=== PATIENT | male | born 1935 | race Caucasian/White ===

== ENCOUNTER 2018-06-23 10:16 | Emergency (ER) | payer MEDICARE ==
[~2018-06-23 10:16] MED LIST: ACET-2031 PO; ASP325 PO; ASPI-757 PO; ATOR20TA65 PO; DOCU-416 PO; EYE CAPS; IBUP600T22 PO; LEVO50TA86 PO; LOSA-51 PO; LOSA-54 PO; MIR; NAPR-731 PO; OXYC-865 PO; POTA99TA15 PO; SIMV-42 PO; TRAM-420 PO; VALS1TAB96 PO
--- NOTE | 2018-06-23 10:18 | ER Report ---
History and Physical Time Seen By MD: 10:18 HPI/ROS CHIEF COMPLAINT: Midsternal chest pain/mid epigastric abdominal pain HISTORY OF PRESENT ILLNESS: Patient is a 83-year-old male here with complaints of midsternal chest pain without radiation, shortness of breath which started approximately 10:00 this morning. 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 Patient reports that his last cardiac catheterization and stress test for approximately 20 years prior. Denies prior history of similar symptoms. Patient also has nausea and vomiting associated with this pain. Patient reports a history of hypertension, hyperlipidemia denies smoking or diabetes. He does have a family history significant for cardiac disease. Patient is afebrile, hemodynamically stable at time of evaluation. Patient did not take aspirin or nitroglycerin prior to arrival. REVIEW OF SYSTEMS: Constitutional: No fever, no chills. Eyes: No discharge. ENT: No sore throat. Cardiovascular: + chest pain, no palpitations. Respiratory: No cough, + shortness of breath. Gastrointestinal: + Midepigastric abdominal pain, + nausea and vomiting. Genitourinary: No hematuria. Musculoskeletal: No back pain. Skin: No rashes. Neurological: No headache. Allergies: Coded Allergies: Khiioss-Urs-Div Reductase Inhibitor (Verified Adverse Reaction, melissa Botello, 06/23/18) Home Meds Active Scripts Ondansetron (ZOFRAN ODT) 4 Mg Tab.rapdis, 4 MG PO Q6H PRN for NAUSEA/VOMITING, #20 TAB.DELFINO 0 Refills Prov:CAROLYN ROJAS DO 06/23/18 Oxycodone Hcl/Acetaminophen (PERCOCET 5-325 MG TABLET) 1 Each Tablet, 1 EACH PO Q4H PRN for PAIN, #15 TAB 0 Refills Prov:CAROLYN ROJAS DO 06/23/18 Naproxen (NAPROXEN) 375 Mg Tablet.dr, 375 MG PO twice a day for 10 Days, #20 TAB Prov:NELSON CAPUTO MD 06/03/17 Reported Medications Losartan/Hydrochlorothiazide (LOSARTAN-HCTZ 100-25 MG TAB) 1 Each Tablet, PO QDAY 03/02/15 Atorvastatin Calcium (ATORVASTATIN CALCIUM) 20 Mg Tablet, 1 TAB PO QDAY, TAB 03/02/15 Acetaminophen (ACETAMINOPHEN) 325 Mg Tablet, 325 MG PO Q4-6H PRN for PAIN, TAB 03/02/15 Aspirin (ASPIRIN) 325 Mg Tablet, 325 MG PO QDAY, TAB 02/24/15 Potassium (POTASSIUM) 99 Mg Tablet, 99 MG PO QDAY 06/06/14 [Eye Caps] No Conflict Check 06/06/14 Tramadol Hcl (TRAMADOL HCL) 50 Mg Tablet, 50-100 MG PO Q4-6H 06/06/14 Levothyroxine Sodium (LEVOTHYROXINE SODIUM) 50 Mcg Tablet, 50 MCG PO QDAY 06/06/14 Hx Smoking: Yes Smoking Status: Former Smoker Exposure to Second Hand Smoke?: No Hx Substance Use Disorder: No Hx Alcohol Use: Yes Constitutional Vital Sign - Last 24 Hours 06/23/18 06/23/18 06/23/18 06/23/18 10:16 10:20 10:27 10:30 Temp 97.8 Pulse ??? Resp 16 B/P (MAP) 128/77 (94) 128/77 125/83 (97) Pulse Ox 96 O2 Delivery Room Air 06/23/18 06/23/18 06/23/18 06/23/18 10:31 10:40 10:43 10:46 Pulse 62 66 Resp 16 B/P (MAP) 97/57 (70) 89/61 (70) Pulse Ox 96 88 06/23/18 06/23/18 06/23/18 06/23/18 10:50 10:54 10:55 11:00 Pulse 59 Resp 17 B/P (MAP) 105/58 (74) 106/60 (75) Pulse Ox 92 93 O2 Delivery Nasal Cannula O2 Flow Rate 2 2.0 06/23/18 06/23/18 06/23/18 06/23/18 11:10 11:25 11:30 11:40 Pulse 56 ??? 51 Resp 11 12 B/P (MAP) 115/74 (88) ???/??? (1665) 108/56 (73) Pulse Ox 99 93 06/23/18 06/23/18 06/23/18 06/23/18 11:50 11:55 12:25 12:28 Pulse 55 54 Resp 26 25 B/P (MAP) 118/98 (105) 99/84 (89) Pulse Ox 93 93 06/23/18 06/23/18 06/23/183/18 12:33 12:48 13:03 13:18 Pulse 61 57 53 53 Resp 24 35 12 14 Pulse Ox 91 84 94 93 06/23/18 06/23/18 06/23/18 13:33 13:44 13:48 Pulse 57 Resp 16 11 B/P (MAP) 112/67 (82) Pulse Ox 90 90 Physical Exam General Appearance: The patient is alert, has no immediate need for airway protection and no signs of toxicity. Moderate distress secondary to pain Eyes: Pupils equal and round no pallor or injection. ENT, Mouth: Mucous membranes are moist. Respiratory: There are no retractions, lungs are clear to auscultation. Cardiovascular: Regular rate and rhythm. Gastrointestinal: Abdomen is soft and + tender in the mid epigastric distribution, no masses, bowel sounds normal. Neurological: No focal deficits Skin: Warm and dry, no rashes. Musculoskeletal: Neck is supple non tender. Extremities are nontender, nonswollen and have full range of motion. DIFFERENTIAL DIAGNOSIS: After history and physical exam differential diagnosis was considered for chest pain including but not limited to myocardial ischemia, pericarditis pulmonary embolus, chest wall pain, pleural inflammation and pulmonary infectious causes. Medical Decision Making Data Points Result Diagram: 06/23/18 1022 06/23/18 1022 Laboratory Hematology Test 06/23/18 10:22 Red Blood Count 5.04 M/uL (4.00-5.60) Mean Corpuscular Volume 91.9 fL (80.0-96.0) Mean Corpuscular Hemoglobin 31.3 pg (26.0-33.0) Mean Corpuscular Hemoglobin Concent 34.0 g/dL (32.0-36.0) Red Cell Distribution Width 13.3 % (11.5-14.5) Mean Platelet Volume 7.7 fL (7.2-11.1) Neutrophils (%) (Auto) 56.7 % (39.4-72.5) Lymphocytes (%) (Auto) 29.3 % (17.6-49.6) Monocytes (%) (Auto) 7.6 % (4.1-12.4) Eosinophils (%) (Auto) 5.4 % (0.4-6.7) Basophils (%) (Auto) 1.0 % (0.3-1.4) Nucleated RBC Relative Count (auto) 0.0 /100WBC Neutrophils # (Auto) 5.3 K/uL (2.0-7.4) Lymphocytes # (Auto) 2.7 K/uL (1.3-3.6) Monocytes # (Auto) 0.7 K/uL (0.3-1.0) Eosinophils # (Auto) 0.5 K/uL (0.0-0.5) Basophils # (Auto) 0.1 K/uL (0.0-0.1) Nucleated RBC Absolute Count (auto) 0.00 K/uL Prothrombin Time 12.8 seconds (12.0-14.4) Prothromb Time International Ratio 0.97 Activated Partial Thromboplast Time 26 seconds (23-35) Sodium Level 140 mmol/L (137-145) Potassium Level 3.7 mmol/L (3.5-5.0) Chloride Level 101 mmol/L (98-107) Carbon Dioxide Level 27 mmol/L (22-30) Blood Urea Nitrogen 30 mg/dl (9-21) Creatinine 1.30 mg/dl (0.66-1.25) Glomerular Filtration Rate Calc 53.0 Random Glucose 105 mg/dl (75-110) Lactate 2.4 mmol/L (0.7-2.1) Calcium Level 9.9 mg/dl (8.4-10.2) Total Bilirubin 0.5 mg/dl (0.2-1.3) Aspartate Amino Transf (AST/SGOT) 45 U/L (0-35) Alanine Aminotransferase (ALT/SGPT) 36 U/L (0-56) Alkaline Phosphatase 54 U/L (0-126) Troponin I < 0.012 ng/ml B-Type Natriuretic Peptide 23 pg/ml (0-100) Total Protein 7.3 g/dl (6.3-8.2) Albumin 4.1 g/dl (3.5-5.0) Lipase 443 U/L (23-300) Chemistry Test 06/23/18 10:22 White Blood Count 9.4 k/uL (4.5-11.0) Red Blood Count 5.04 M/uL (4.00-5.60) Hemoglobin 15.8 g/dL (14.0-18.0) Hematocrit 46.3 % (42.0-52.0) Mean Corpuscular Volume 91.9 fL (80.0-96.0) Mean Corpuscular Hemoglobin 31.3 pg (26.0-33.0) Mean Corpuscular Hemoglobin Concent 34.0 g/dL (32.0-36.0) Red Cell Distribution Width 13.3 % (11.5-14.5) Platelet Count 263 K/uL (150-450) Mean Platelet Volume 7.7 fL (7.2-11.1) Neutrophils (%) (Auto) 56.7 % (39.4-72.5) Lymphocytes (%) (Auto) 29.3 % (17.6-49.6) Monocytes (%) (Auto) 7.6 % (4.1-12.4) Eosinophils (%) (Auto) 5.4 % (0.4-6.7) Basophils (%) (Auto) 1.0 % (0.3-1.4) Nucleated RBC Relative Count (auto) 0.0 /100WBC Neutrophils # (Auto) 5.3 K/uL (2.0-7.4) Lymphocytes # (Auto) 2.7 K/uL (1.3-3.6) Monocytes # (Auto) 0.7 K/uL (0.3-1.0) Eosinophils # (Auto) 0.5 K/uL (0.0-0.5) Basophils # (Auto) 0.1 K/uL (0.0-0.1) Nucleated RBC Absolute Count (auto) 0.00 K/uL Prothrombin Time 12.8 seconds (12.0-14.4) Prothromb Time International Ratio 0.97 Activated Partial Thromboplast Time 26 seconds (23-35) Glomerular Filtration Rate Calc 53.0 Lactate 2.4 mmol/L (0.7-2.1) Calcium Level 9.9 mg/dl (8.4-10.2) Total Bilirubin 0.5 mg/dl (0.2-1.3) Aspartate Amino Transf (AST/SGOT) 45 U/L (0-35) Alanine Aminotransferase (ALT/SGPT) 36 U/L (0-56) Alkaline Phosphatase 54 U/L (0-126) Troponin I < 0.012 ng/ml B-Type Natriuretic Peptide 23 pg/ml (0-100) Total Protein 7.3 g/dl (6.3-8.2) Albumin 4.1 g/dl (3.5-5.0) Lipase 443 U/L (23-300) Coagulation Test 06/23/18 10:22 Prothrombin Time 12.8 seconds Prothromb Time International Ratio 0.97 Activated Partial Thromboplast Time 26 seconds EKG/Imaging EKG Interpretation 12 lead EKG: Normal sinus rhythm. Ventricular rate 60, QTc interval 42, no ischemic changes Rhythm: normal sinus rhythm [place]: normal QRS: normal ST segments: normal Monitor Interpretation: Normal Sinus Rhythm Imaging CT abdomen and pelvis with IV contrast Indication: Mid epigastric abdominal pain Comparison: Report CT abdomen pelvis July 25, 2011. Technique: Helical CT images were obtained through the abdomen and pelvis during injection of nonionic iodinated intravenous contrast. Reformatted coronal and sagittal images were also obtained. Contrast: 80 ml of Isovue-370 IV contrast. One of the following dose optimization techniques was utilized in the performance of this exam: Automated exposure control; adjustment of the mA and/or kV according to the patient's size; or use of an iterative reconstruction technique. Specific details can be referenced in the facility's radiology CT exam operational policy. Findings: Lower lung pratt: Limited views lower lung field are unremarkable. Liver: There is mild biliary ductal dilation. Hepatic parenchyma is otherwise unremarkable. Biliary: The gallbladder is in size with layering biliary sludge is noted. No pericholecystic fluid or pericholecystic fat stranding. Pancreas: Focal dilation of the pancreatic duct at the pancreatic head is noted measuring 9 mm. Mild prominence of the pancreatic duct is noted. Spleen: Normal appearance. Adrenal glands: Unremarkable. Kidneys / retroperitoneum: No evidence of obstructive uropathy. There has been interval enlargement of multiple bilateral renal cysts including within the superior pole of the right kidney maximally measuring 4.5 cm. Several of the cysts are too small to accurately characterize. Bowel / peritoneum / mesenteries: Multiple colonic diverticula are noted. No evidence of acute diverticulitis. Remaining visualized large and small bowel are unremarkable. Appendix appears unremarkable. Lymph node assessment: No pathologic adenopathy identified. Pelvic structures: Fat-containing bilateral inguinal hernias are noted. Vessels: Atherosclerotic changes are present. Musculoskeletal / Body wall: No acute osseous findings. Degenerative and postoperative changes are again noted IMPRESSION: 1. Mild intrahepatic biliary ductal dilation as well as enlarged appearance of the gallbladder with layering biliary sludge. There is also focal dilation of the pancreatic head measuring 9 mm. In the acute setting these findings may represent an obstructive process such as choledocholithiasis which is not conspicuous with CT. Additional characterization could be obtained with ultrasound and/or HIDA scan. 2. Focal dilation of the pancreatic duct at the level of pancreatic head as above. Although this may be secondary to obstructive process; follow-up multiphasic MRI or CT is recommended to ensure resolution. 3. Incidental findings as above. Technique: CHEST SINGLE AP HISTORY: Chest Pain Comparison studies: Chest radiograph June 03, 2017 FINDINGS: No acute airspace consolidation. There remains pulmonary hyperexpansion with scattered interstitial lung markings.. Central peribronchial thickening is again noted. The cardiomediastinal silhouette is unchanged. IMPRESSION: 1. No acute cardiopulmonary process. 2. Chronic lung findings as described above. ED Course/Re-evaluation ED Course Patient is an 83-year-old male here with complaints of lower midsternal chest pain, midepigastric abdominal pain, nausea, vomiting. Initially, patient presentation was concerning for cardiac etiology however on further evaluation, physical exam revealed the patient was tender in the midepigastric and right upper quadrant abdominal distribution. Patient initially received aspirin, nitroglycerin, Zofran, IV fluids and fentanyl with significant relief of symptoms. He is noted to have a mildly elevated lipase, no leukocytosis, mild daycare and mildly elevated lactate. CT imaging revealed gallbladder distention with no signs of infection, sludging was present. 2 set of troponin was negative. Chest x-ray showed no acute findings. EKG was unremarkable. I discussed the findings with the patient and also briefly discussed the patient with Dr. Young who recommended outpatient follow-up with Dr. Hamm's office for outpatient intervention. Patient voiced understanding and agreed to return promptly if he developed worsening symptoms, fevers, inability to tolerate by mouth intake. Patient was hemodynamically stable at time of discharge. He was given scripts for Zofran and Percocet. Decision to Disposition Date: Jun 23, 2018 Decision to Disposition Time: 15:00 Depart Departure Latest Vital Signs Vital Signs Date Time Temp Pulse Resp B/P (MAP) Pulse Ox O2 Delivery O2 Flow Rate FiO2 06/23/18 13:48 11 90 11/3/18 13:44 112/67 (82) 06/23/18 13:33 57 06/23/18 10:54 2.0 06/23/18 10:50 Nasal Cannula 06/23/18 10:27 97.8 Impression: Primary Impression: Gall bladder disease Condition: Improved Disposition: HOME OR SELF-CARE Referrals: IMMANUEL MADDOX MD (PCP) New Scripts Ondansetron (ZOFRAN ODT) 4 Mg Tab.rapdis 4 MG PO Q6H PRN for NAUSEA/VOMITING, #20 TAB.DELFINO 0 Refills Prov: CAROLYN ROJAS DO 06/23/18 Oxycodone Hcl/Acetaminophen (PERCOCET 5-325 MG TABLET) 1 Each Tablet 1 EACH PO Q4H PRN for PAIN, #15 TAB 0 Refills Prov: CAROLYN ROJAS DO 06/23/18 Patient Instructions: Abdominal Pain (ED) Additional Instructions: Please drink plenty of water. Please avoid spicy foods, chocolate, red wine, red sauce as these may worsen your abdominal pain. You likely have gallbladder disease and may need to have your gallbladder taken out in the next several days. Please call Dr. Hamm's office at [phone] in order to schedule an appointment at the clinic for evaluation. Please return promptly if you develop fevers, worsening pain, inability to hold down fluid or foods, blood in the stools or urine, difficulty breathing. You may take 1 tablet of Zofran every 4-6 hours as needed for nausea and vomiting and you may take 1 Percocet every 4-6 hours as needed for pain control. CAROLYN ROJAS DO Jun 23, 2018 10:18
[2018-06-23] MEDS ORDERED: NITROGLYCERIN 0.4 MG SUBL SL SCH (10:20)
[2018-06-23] MEDS ORDERED: ASPIRIN 81 MG CHEW PO ONE (10:20)
[2018-06-23] MEDS ORDERED: ONDANSETRON 4 MG/2 ML VIAL IVP ONE (10:30)
--- NOTE | 2018-06-23 10:35 | EKG ---
FACILITY: [facility] [place]IENT NAME: IMMANUEL GONZALEZ : [id number] MR: [id number] V: [id number] EXAM DATE: ORDERING PHYSICIAN: CAROLYN ROJAS TECHNOLOGIST: Test Reason : Chest pain Blood Pressure : / mmHG Vent. Rate : 060 BPM Atrial Rate : 060 BPM P-R Int : 182 ms QRS Dur : 092 ms QT Int : 402 ms P-R-T Axes : 062 073 075 degrees QTc Int : 402 ms Sinus rhythm Possible left atrial enlargement Nonspecific ST findings inferior leads Confirmed by ELANA DREW ([id number]) on 06/23/2018 9:05:15 PM Referred By: Confirmed By:ELANA DREW
[2018-06-23 10:40] LABS: PLATELET COUNT, AUTOMATED 263 K/uL (150-450)
[2018-06-23 10:57] LABS: INR 0.97
[2018-06-23] MEDS ORDERED: fentaNYL CITR 100 MCG/2 ML AMP IVP ONE (11:00)
--- NOTE | 2018-06-23 11:02 | RADIOLOGY IMAGING REPORT ---
FACILITY: [facility] - [place] PATIENT NAME: Sheng Rebolledo : 1935 MR: [id number] V: [id number] EXAM DATE: ORDERING PHYSICIAN: CAROLYN ROJAS TECHNOLOGIST: Location: [facility] - [place] Patient: Sheng Rebolledo : 1935 Visit/Account:[id number] Date of Sevice: 06/23/2018 Technique: CHEST SINGLE AP HISTORY: Chest Pain Comparison studies: Chest radiograph June 03, 2017 FINDINGS: No acute airspace consolidation. There remains pulmonary hyperexpansion with scattered inte rstitial lung markings.. Central peribronchial thickening is again noted. The cardiomediastinal silho uette is unchanged. IMPRESSION: 1. No acute cardiopulmonary process. 2. Chronic lung findings as described above. Report Dictated By: Garett Zaragoza DO at 06/23/2018 10:57 AM Report E-Signed By: Garett Zaragoza DO at 06/23/2018 10:59 AM WSN:[id number]
[2018-06-23] MEDS ORDERED: IOPAMIDOL 76% 75 ML INFUS BTL 0 ML ONE (11:22)
[2018-06-23] MEDS ORDERED: IOPAMIDOL 76% 75 ML INFUS BTL 75 ML ONE (11:41)
--- NOTE | 2018-06-23 12:42 | RADIOLOGY IMAGING REPORT ---
FACILITY: [facility] PATIENT NAME: Sheng Rebolledo : 1935 MR: [id number] V: [id number] EXAM DATE: ORDERING PHYSICIAN: CAROLYN ROJAS TECHNOLOGIST: Location: [facility] Patient: Sheng Rebolledo : 1935 Visit/Account:[id number] Date of Sevice: 06/23/2018 CT abdomen and pelvis with IV contrast Indication: Mid epigastric abdominal pain Comparison: Report CT abdomen pelvis July 25, 2011. Technique: Helical CT images were obtained through the abdomen and pelvis during injection of nonio ed iodinated intravenous contrast. Reformatted coronal and sagittal images were also obtained. Contrast: 80 ml of Isovue-370 IV contrast. One of the following dose optimization techniques was u tilized in the performance of this exam: Automated exposure control; adjustment of the mA and/or kV a ccording to the patient's size; or use of an iterative reconstruction technique. Specific details c an be referenced in the facility's radiology CT exam operational policy. Findings: Lower lung pratt: Limited views lower lung field are unremarkable. Liver: There is mild biliary ductal dilation. Hepatic parenchyma is otherwise unremarkable. Biliary: The gallbladder is in size with layering biliary sludge is noted. No pericholecystic fluid o r pericholecystic fat stranding. Pancreas: Focal dilation of the pancreatic duct at the pancreatic head is noted measuring 9 mm. Mild prominence of the pancreatic duct is noted. Spleen: Normal appearance. Adrenal glands: Unremarkable. Kidneys / retroperitoneum: No evidence of obstructive uropathy. There has been interval enlargement o f multiple bilateral renal cysts including within the superior pole of the right kidney maximally wade suring 4.5 cm. Several of the cysts are too small to accurately characterize. Bowel / peritoneum / mesenteries: Multiple colonic diverticula are noted. No evidence of acute divert iculitis. Remaining visualized large and small bowel are unremarkable. Appendix appears unremarkable. Lymph node assessment: No pathologic adenopathy identified. Pelvic structures: Fat-containing bilateral inguinal hernias are noted. Vessels: Atherosclerotic changes are present. Musculoskeletal / Body wall: No acute osseous findings. Degenerative and postoperative changes are ag ain noted IMPRESSION: 1. Mild intrahepatic biliary ductal dilation as well as enlarged appearance of the gallbladder with l ayering biliary sludge. There is also focal dilation of the pancreatic head measuring 9 mm. In the a cute setting these findings may represent an obstructive process such as choledocholithiasis which is not conspicuous with CT. Additional characterization could be obtained with ultrasound and/or HIDA s can. 2. Focal dilation of the pancreatic duct at the level of pancreatic head as above. Although this may be secondary to obstructive process; follow-up multiphasic MRI or CT is recommended to ensure resolut ion. 3. Incidental findings as above. Results were called to Aram Hamilton NP at 06/23/2018 12:37 PM. Report Dictated By: Garett Zaragoza DO at 06/23/2018 11:49 AM Report E-Signed By: Garett Zaragoza DO at 06/23/2018 12:38 PM WSN:[id number]
[2018-06-23] MEDS ORDERED: OXYC-865 PO (13:34)
[2018-06-23] MEDS ORDERED: ONDA4TAB PO (13:34)
[2018-06-23 13:44] VITALS: BP 112/67
== END 2018-06-23 13:53 | disposition home or self-care (01) ==
LOC: ER 10:25
DX: K82.9 Disease of gallbladder, unspecified (principal)
CPT/HCPCS: 71045; 74177; 83605; 83690; 83880; 84484; 85025; 85610; 85730; 93005; 96374; 96375; 99284; A9270; J2405; J3010; Q9967; 82040; 82247; 82310; 82374; 82435; 82565; 82947; 84075; 84132; 84155; 84295; 84450; 84460; 84520

== ENCOUNTER 2018-06-23 20:08 | Emergency (ER) | payer MEDICARE ==
[~2018-06-23 20:08] MED LIST changes: +ONDA4TAB PO
--- NOTE | 2018-06-23 20:12 | ER Report ---
History and Physical Time Seen By MD: 20:12 HPI/ROS CHIEF COMPLAINT: Vomiting, right upper quadrant pain HISTORY OF PRESENT ILLNESS: 83-year-old male returns to the ER after being seen earlier this morning. He was diagnosed with cholecystitis. He had a CT scan showing biliary dilation. They considered an ultrasound, but he was to follow up as an outpatient with general surgery for consideration of laparoscopic cholecystectomy. She has continued to vomit have increasing right upper quadrant pain. He presents with a low-grade fever 99.5. REVIEW OF SYSTEMS: Respiratory: No cough, no dyspnea. Cardiovascular: No chest pain, no palpitations. Gastrointestinal: As above Musculoskeletal: No back pain. Allergies: Coded Allergies: Brdaejv-Xut-Ema Reductase Inhibitor (Verified Adverse Reaction, Rosmery, melissa, 06/23/18) Home Meds Active Scripts Ondansetron (ZOFRAN ODT) 4 Mg Tab.rapdis, 4 MG PO Q6H PRN for NAUSEA/VOMITING, #20 TAB.DELFINO 0 Refills Prov:CAROLYN ROJAS DO 06/23/18 Oxycodone Hcl/Acetaminophen (PERCOCET 5-325 MG TABLET) 1 Each Tablet, 1 EACH PO Q4H PRN for PAIN, #15 TAB 0 Refills Prov:CAROLYN ROJAS DO 06/23/18 Naproxen (NAPROXEN) 375 Mg Tablet.dr, 375 MG PO twice a day for 10 Days, #20 TAB Prov:NELSON CAPUTO MD 06/03/17 Reported Medications Losartan/Hydrochlorothiazide (LOSARTAN-HCTZ 100-25 MG TAB) 1 Each Tablet, PO QDAY 03/02/15 Atorvastatin Calcium (ATORVASTATIN CALCIUM) 20 Mg Tablet, 1 TAB PO QDAY, TAB 03/02/15 Acetaminophen (ACETAMINOPHEN) 325 Mg Tablet, 325 MG PO Q4-6H PRN for PAIN, TAB 03/02/15 Aspirin (ASPIRIN) 325 Mg Tablet, 325 MG PO QDAY, TAB 02/24/15 Potassium (POTASSIUM) 99 Mg Tablet, 99 MG PO QDAY 06/06/14 [Eye Caps] No Conflict Check 06/06/14 Tramadol Hcl (TRAMADOL HCL) 50 Mg Tablet, 50-100 MG PO Q4-6H 06/06/14 Levothyroxine Sodium (LEVOTHYROXINE SODIUM) 50 Mcg Tablet, 50 MCG PO QDAY 10/17/14 Past Medical/Surgical History Patient has a past medical history of migraines, hypertension, hyperlipidemia, reflux, benign prostatic hypertrophy, arthritis, fractures, hard of hearing, hypothyroidism, occasional alcohol use. Malignant hyperthermia with previous surgery Patient has a surgical history of cataract surgery, back surgery, shoulder surgery, knee surgery, TURP, hernia repair. Patient denies any pertinent family medical history. Reviewed Nurses Notes: Yes Old Medical Records Reviewed: Yes Hx Smoking: Yes Smoking Status: Former Smoker Exposure to Second Hand Smoke?: No Hx Substance Use Disorder: No Hx Alcohol Use: Yes Constitutional Vital Sign - Last 24 Hours 06/23/18 06/23/18 06/23/18 06/23/18 20:12 20:12 20:21 20:23 Temp 99.5 Pulse 123 ??? Resp 16 B/P (MAP) 140/78 140/78 (98) Pulse Ox 80 91 O2 Delivery Room Air O2 Flow Rate 2.0 06/23/18 06/23/18 06/23/18 06/23/18 20:32 20:38 20:53 21:00 Pulse 94 95 B/P (MAP) 86/51 (63) 115/72 (86) Pulse Ox 94 95 06/23/18 06/23/18 06/23/18 06/23/18 21:08 21:13 21:28 21:30 Pulse 95 99 94 B/P (MAP) 120/69 (86) Pulse Ox 97 95 96 06/23/18 06/23/18 06/23/18 06/23/18 21:43 21:58 22:00 22:13 Pulse 102 98 92 B/P (MAP) 130/71 (90) Pulse Ox 91 96 94 06/23/18 06/23/18 06/23/18 06/23/18 22:18 22:30 22:48 23:00 Pulse 95 ??? B/P (MAP) 111/75 (87) 97/76 (83) Pulse Ox 95 06/23/18 06/23/18 06/24/18 06/24/18 23:30 23:50 00:00 00:20 Pulse ? B/P (MAP) 114/68 (83) ???/??? (1665) 06/24/18 06/24/18 00:27 00:32 Pulse 94 Resp 14 B/P (MAP) 116/60 (78) Pulse Ox 92 81 O2 Delivery Nasal Cannula O2 Flow Rate 2 Physical Exam Vital signs stable, tachycardic, low-grade fever 99.5, hypoxic, room air pulse ox 80%. [place]. Patient not on home O2 or previously on oxygen General Appearance: The patient is alert, has no immediate need for airway protection and no current signs of toxicity. Mild distress, slightly pale appearing, no air hunger HEENT: Pupils equal and round no injection. TMs normal, oropharynx without redness or exudate Respiratory: Chest is non tender, lungs are clear to auscultation. No wheezing or rails Cardiac: regular rate and rhythm Gastrointestinal: Abdomen is soft, mild epigastric and right upper quadrant tenderness, no masses, no Ervin sign, no rebound bowel sounds normal. Musculoskeletal: Neck: Neck is supple and non tender. No JVD, no lymphadenopathy Extremities have full range of motion and are non tender. No edema, no calf tenderness Skin: No rashes or lesions. DIFFERENTIAL DIAGNOSIS: After history and physical exam differential diagnosis was considered for abdominal pain including but not limited to appendicitis, cholecystitis, gastritis, biliary obstruction and urinary tract infection. Additionally, chest pain including but not limited to myocardial ischemia, pericarditis pulmonary embolus, chest wall pain, pleural inflammation and pulmonary infectious causes. Medical Decision Making Data Points Result Diagram: 06/23/18202206/23/182022 Laboratory Hematology Test 06/23/18 20:23 06/23/18 21:00 Red Blood Count 4.96 M/uL (4.00-5.60) Mean Corpuscular Volume 91.0 fL (80.0-96.0) Mean Corpuscular Hemoglobin 30.8 pg (26.0-33.0) Mean Corpuscular Hemoglobin Concent 33.8 g/dL (32.0-36.0) Red Cell Distribution Width 13.3 % (11.5-14.5) Mean Platelet Volume 7.9 fL (7.2-11.1) Neutrophils (%) (Auto) 87.4 % (39.4-72.5) Lymphocytes (%) (Auto) 6.1 % (17.6-49.6) Monocytes (%) (Auto) 5.4 % (4.1-12.4) Eosinophils (%) (Auto) 0.5 % (0.4-6.7) Basophils (%) (Auto) 0.6 % (0.3-1.4) Nucleated RBC Relative Count (auto) 0.0 /100WBC Neutrophils # (Auto) 9.8 K/uL (2.0-7.4) Lymphocytes # (Auto) 0.7 K/uL (1.3-3.6) Monocytes # (Auto) 0.6 K/uL (0.3-1.0) Eosinophils # (Auto) 0.1 K/uL (0.0-0.5) Basophils # (Auto) 0.1 K/uL (0.0-0.1) Nucleated RBC Absolute Count (auto) 0.00 K/uL Prothrombin Time 13.1 seconds (12.0-14.4) Prothromb Time International Ratio 0.99 Activated Partial Thromboplast Time 27 seconds (23-35) D-Dimer Quantitative (PE/DVT) 0.58 ug/ml (0-0.50) Sodium Level 137 mmol/L (137-145) Potassium Level 3.9 mmol/L (3.5-5.0) Chloride Level 100 mmol/L (98-107) Carbon Dioxide Level 28 mmol/L (22-30) Blood Urea Nitrogen 30 mg/dl (9-21) Creatinine 1.30 mg/dl (0.66-1.25) Glomerular Filtration Rate Calc 53.0 Random Glucose 114 mg/dl (75-110) Lactate 1.8 mmol/L (0.7-2.1) Calcium Level 9.5 mg/dl (8.4-10.2) Total Bilirubin 2.1 mg/dl (0.2-1.3) Aspartate Amino Transf (AST/SGOT) 721 U/L (0-35) Alanine Aminotransferase (ALT/SGPT) 696 U/L (0-56) Alkaline Phosphatase 125 U/L (0-126) C-Reactive Protein 0.7 mg/dl (<1.0) B-Type Natriuretic Peptide 41 pg/ml (0-100) Total Protein 7.1 g/dl (6.3-8.2) Albumin 3.9 g/dl (3.5-5.0) Lipase 687 U/L (23-300) Urine Color Yellow Urine Clarity Clear Urine pH 5.0 pH (4.8-9.5) Urine Specific Broadbent 1.040 Urine Protein Negative mg/dL (NEGATIVE) Urine Glucose (UA) Negative mg/dL (NEGATIVE) Urine Ketones Negative mg/dL (NEGATIVE) Urine Blood Negative (NEGATIVE) Urine Nitrite Negative (NEGATIVE) Urine Bilirubin Negative (NEGATIVE) Urine Urobilinogen 2.0 mg/dL (0.2-1.9) Urine Leukocyte Esterase Negative (NEGATIVE) Urine RBC 6 /HPF (0-2/HPF) Urine WBC 6 /HPF (0-5/HPF) Urine Squamous Epithelial Cells None /LPF (</=FEW) Urine Transitional Epithelial Cells Few /LPF (NONE-FEW) Urine Bacteria Few /HPF (NONE-FEW) Urine Mucus Few /HPF (NONE-FEW) Chemistry Test 06/23/18 20:23 06/23/18 21:00 White Blood Count 11.2 k/uL (4.5-11.0) Red Blood Count 4.96 M/uL (4.00-5.60) Hemoglobin 15.2 g/dL (14.0-18.0) Hematocrit 45.1 % (42.0-52.0) Mean Corpuscular Volume 91.0 fL (80.0-96.0) Mean Corpuscular Hemoglobin 30.8 pg (26.0-33.0) Mean Corpuscular Hemoglobin Concent 33.8 g/dL (32.0-36.0) Red Cell Distribution Width 13.3 % (11.5-14.5) Platelet Count 192 K/uL (150-450) Mean Platelet Volume 7.9 fL (7.2-11.1) Neutrophils (%) (Auto) 87.4 % (39.4-72.5) Lymphocytes (%) (Auto) 6.1 % (17.6-49.6) Monocytes (%) (Auto) 5.4 % (4.1-12.4) Eosinophils (%) (Auto) 0.5 % (0.4-6.7) Basophils (%) (Auto) 0.6 % (0.3-1.4) Nucleated RBC Relative Count (auto) 0.0 /100WBC Neutrophils # (Auto) 9.8 K/uL (2.0-7.4) Lymphocytes # (Auto) 0.7 K/uL (1.3-3.6) Monocytes # (Auto) 0.6 K/uL (0.3-1.0) Eosinophils # (Auto) 0.1 K/uL (0.0-0.5) Basophils # (Auto) 0.1 K/uL (0.0-0.1) Nucleated RBC Absolute Count (auto) 0.00 K/uL Prothrombin Time 13.1 seconds (12.0-14.4) Prothromb Time International Ratio 0.99 Activated Partial Thromboplast Time 27 seconds (23-35) D-Dimer Quantitative (PE/DVT) 0.58 ug/ml (0-0.50) Glomerular Filtration Rate Calc 53.0 Lactate 1.8 mmol/L (0.7-2.1) Calcium Level 9.5 mg/dl (8.4-10.2) Total Bilirubin 2.1 mg/dl (0.2-1.3) Aspartate Amino Transf (AST/SGOT) 721 U/L (0-35) Alanine Aminotransferase (ALT/SGPT) 696 U/L (0-56) Alkaline Phosphatase 125 U/L (0-126) C-Reactive Protein 0.7 mg/dl (<1.0) B-Type Natriuretic Peptide 41 pg/ml (0-100) Total Protein 7.1 g/dl (6.3-8.2) Albumin 3.9 g/dl (3.5-5.0) Lipase 687 U/L (23-300) Urine Color Yellow Urine Clarity Clear Urine pH 5.0 pH (4.8-9.5) Urine Specific Broadbent 1.040 Urine Protein Negative mg/dL (NEGATIVE) Urine Glucose (UA) Negative mg/dL (NEGATIVE) Urine Ketones Negative mg/dL (NEGATIVE) Urine Blood Negative (NEGATIVE) Urine Nitrite Negative (NEGATIVE) Urine Bilirubin Negative (NEGATIVE) Urine Urobilinogen 2.0 mg/dL (0.2-1.9) Urine Leukocyte Esterase Negative (NEGATIVE) Urine RBC 6 /HPF (0-2/HPF) Urine WBC 6 /HPF (0-5/HPF) Urine Squamous Epithelial Cells None /LPF (</=FEW) Urine Transitional Epithelial Cells Few /LPF (NONE-FEW) Urine Bacteria Few /HPF (NONE-FEW) Urine Mucus Few /HPF (NONE-FEW) Coagulation Test 06/23/18 20:23 Prothrombin Time 13.1 seconds Prothromb Time International Ratio 0.99 Activated Partial Thromboplast Time 27 seconds D-Dimer Quantitative (PE/DVT) 0.58 ug/ml Urinalysis Test 06/23/18 21:00 Urine Color Yellow Urine Clarity Clear Urine pH 5.0 pH (4.8-9.5) Urine Specific Broadbent 1.040 Urine Protein Negative mg/dL (NEGATIVE) Urine Glucose (UA) Negative mg/dL (NEGATIVE) Urine Ketones Negative mg/dL (NEGATIVE) Urine Blood Negative (NEGATIVE) Urine Nitrite Negative (NEGATIVE) Urine Bilirubin Negative (NEGATIVE) Urine Urobilinogen 2.0 mg/dL (0.2-1.9) Urine Leukocyte Esterase Negative (NEGATIVE) Urine RBC 6 /HPF (0-2/HPF) Urine WBC 6 /HPF (0-5/HPF) Urine Squamous Epithelial Cells None /LPF (</=FEW) Urine Transitional Epithelial Cells Few /LPF (NONE-FEW) Urine Bacteria Few /HPF (NONE-FEW) Urine Mucus Few /HPF (NONE-FEW) Microbiology Microbiology Date/Time Source Procedure Growth Status 06/23/18 20:41 Blood Peripheral Draw Blood Culture - Preliminary NO GROWTH AFTER 1 DAY, REINCUBATED Resulted 06/23/18 20:23 Blood Peripheral Draw Blood Culture - Preliminary NO GROWTH AFTER 1 DAY, REINCUBATED Resulted EKG/Imaging EKG Interpretation 12 lead EK Rhythm: normal sinus rhythm [place]: normal QRS: normal ST segments: normal, no evidence of ischemia or dysrhythmia, comparison to previous EKG from earlier today, no significant morphologic change Imaging X-ray: Chest x-ray earlier today was obtained. I viewed the images myself on the PACS system. My interpretation of the images is: Technique: CHEST SINGLE AP HISTORY: Chest Pain Comparison studies: Chest radiograph June 03, 2017 FINDINGS: No acute airspace consolidation. There remains pulmonary hyperexpansion with scattered interstitial lung markings.. Central peribronchial thickening is again noted. The cardiomediastinal silhouette is unchanged. IMPRESSION: 1. No acute cardiopulmonary process. 2. Chronic lung findings as described above. The radiologist interpretation had no clinically significant variation from this interpretation. Results: CT scan of the abdomen and pelvis with IV contrast was obtained. The results of the study are CT abdomen and pelvis with IV contrast Indication: Mid epigastric abdominal pain Comparison: Report CT abdomen pelvis July 25, 2011. Technique: Helical CT images were obtained through the abdomen and pelvis during injection of nonionic iodinated intravenous contrast. Reformatted coronal and sagittal images were also obtained. Contrast: 80 ml of Isovue-370 IV contrast. One of the following dose optimization techniques was utilized in the performance of this exam: Automated exposure control; adjustment of the mA and/or kV according to the patient's size; or use of an iterative reconstruction technique. Specific details can be referenced in the facility's radiology CT exam operational policy. Findings: Lower lung pratt: Limited views lower lung field are unremarkable. Liver: There is mild biliary ductal dilation. Hepatic parenchyma is otherwise unremarkable. Biliary: The gallbladder is in size with layering biliary sludge is noted. No pericholecystic fluid or pericholecystic fat stranding. Pancreas: Focal dilation of the pancreatic duct at the pancreatic head is noted measuring 9 mm. Mild prominence of the pancreatic duct is noted. Spleen: Normal appearance. Adrenal glands: Unremarkable. Kidneys / retroperitoneum: No evidence of obstructive uropathy. There has been interval enlargement of multiple bilateral renal cysts including within the superior pole of the right kidney maximally measuring 4.5 cm. Several of the cysts are too small to accurately characterize. Bowel / peritoneum / mesenteries: Multiple colonic diverticula are noted. No evidence of acute diverticulitis. Remaining visualized large and small bowel are unremarkable. Appendix appears unremarkable. Lymph node assessment: No pathologic adenopathy identified. Pelvic structures: Fat-containing bilateral inguinal hernias are noted. Vessels: Atherosclerotic changes are present. Musculoskeletal / Body wall: No acute osseous findings. Degenerative and postoperative changes are again noted IMPRESSION: 1. Mild intrahepatic biliary ductal dilation as well as enlarged appearance of the gallbladder with layering biliary sludge. There is also focal dilation of the pancreatic head measuring 9 mm. In the acute setting these findings may represent an obstructive process such as choledocholithiasis which is not conspicuous with CT. Additional characterization could be obtained with ultrasound and/or HIDA scan. 2. Focal dilation of the pancreatic duct at the level of pancreatic head as above. Although this may be secondary to obstructive process; follow-up multiphasic MRI or CT is recommended to ensure resolution. 3. Incidental findings as above. The study was read by the radiologist. I viewed the images myself on the PACS system. Results: Ultrasound of the gallbladder ultrasound was obtained. The results of the study are GALLBLADDER HISTORY: RUQ pain pancreatitis ADDITIONAL HISTORY: None. COMPARISON: None. FINDINGS: Gallbladder: Gallbladder sludge. No wall thickening. No pericholecystic fluid collections Liver: 16 cm. No liver lesions. Common duct: Normal, 5.8 mm diameter. Pancreas: Mild dilatation of the pancreatic duct. No pancreatic mass lesion seen. Right kidney: Right kidney measures 10.2 x 4.2 x 4.9 cm in size. Multiple renal cysts. No hydronephrosis. Upper abdominal aorta and IVC: Patent. Ascites: None visualized. IMPRESSION: 1. Gallbladder sludge. No evidence of acute cholecystitis. 2. Mild dilatation of the pancreatic duct. No acute pancreatic pathology identified, however. The study was read by the radiologist. I viewed the images myself on the PACS system. Results: CT scan of the CTA pulmonary angiogram was obtained. The results of the study are CTA CHEST WW/O CNTR (PULM ANG) HISTORY: Elevated d-dimer. COMPARISON: Chest x-rays from 06/23/2018 and dating to 10/30/2006. No prior chest CT. TECHNIQUE: Pulmonary embolus protocol - Thin-slice axial imaging of the chest was performed during maximal pulmonary arterial opacification with intravenous nonionic iodinated contrast. 3D coronal slab MIPs and 2D reconstructions in the coronal and sagittal planes were performed to aid in pulmonary embolus detection. [employer] images have been stored on PACS. One of the following dose optimization techniques was utilized in the performance of this exam: Automated exposure control; adjustment of the mA and/or kV according to the patient's size; or use of an iterative reconstruction technique. Specific details can be referenced in the facility's radiology CT exam operational policy. CONTRAST: 75 mL of IV Isovue-370. FINDINGS: Pulmonary arteries: There is adequate opacification of the pulmonary arteries to the segmental branches. There are no filling defects in the visible pulmonary arteries. Pulmonary arteries are enlarged. Thoracic inlet: Normal. Aorta: No aneurysm or dissection. There is mild atherosclerosis of the aorta. Heart / Pericardium: The heart is normal. There is no ventricular septal deviation. There is no pericardial effusion. There is mild to moderate coronary artery calcification. Mediastinum / Elvi: Normal mediastinum. No lymphadenopathy. Lungs / Pleura: No pleural effusion. There is mild atelectasis, greatest dependently in the lower lobes. No pneumothorax. The airways are normal. Upper abdomen: There is a partially visualized cyst of the posterior upper right renal cortex. Musculoskeletal/vertebra/body wall: There are Schmorl nodes, and there is mode rate degenerative change of the spine. There is mild wedging of T11, unchanged. IMPRESSION: 1. No pulmonary embolism. 2. Mild to moderate coronary artery calcification. 3. Pulmonary arteries are enlarged. This is nonspecific but can be seen with pulmonary artery hypertension. The study was read by the radiologist. I viewed the images myself on the PACS system. ED Course/Re-evaluation Clinical Indication for ER IV: Hydration, IV Access ED Course Patient was admitted to an examination room. H&P was done. The differential diagnoses was considered. Patient's previous records from approximately 12 hours ago reviewed. Patient with acute diagnosis of cholecystitis. Plans were for outpatient follow-up. He's gotten worse. He returns with vomiting and increasing epigastric pain. He's also noted to be hypoxic on arrival with a room air pulse ox 80%. Patient has no previous history of O2 use. Diagnostic studies were performed. Patient's LFTs have significantly increased from baseline to the 700s. His lipase is doubled from 450 to almost 700. His bilirubin has gone from 0.5-2.1. His d-dimer is mildly elevated at 0.58. With his hypoxia. CT angiogram should be performed. A gallbladder ultrasound was performed, which was relatively unremarkable except for gallbladder sludge noted. There was no gall bladder wall thickening, no dimitri-cholecystic fluid noted. She will likely need ERCP which is unavailable in our facility. I discussed the case with Dr. Radha lam surgery on-call from [facility] who accepts ERCP cases. Arrangements were made to transfer the patient to [facility]. A CTA palmar angiogram will be performed prior to transfer to rule out pulmonary embolism. 06/23/2018 11:34:08 pm case discussed with Dr. Yahir Garcia general surgery at [facility] who accepts the patient for transfer to his facility. 06/23/2018 11:34:34 pm patient's case was discussed with Dr. Shana Cervantes on-call radiologist who states it's okay to proceed with CTA pulmonary angiogram to rule out ulnar embolism with a 2nd dose of contrast Decision to Disposition Date: Jun 23, 2018 Decision to Disposition Time: 22:25 Depart Departure Latest Vital Signs Vital Signs Date Time Temp Pulse Resp B/P (MAP) Pulse Ox O2 Delivery O2 Flow Rate FiO2 06/24/18 00:32 94 81 06/24/18 00:27 14 116/60 (78) Nasal Cannula 2 06/23/18 20:12 99.5 Impression: Primary Impression: Biliary obstruction Additional Impressions: Pancreatitis due to biliary obstruction Hypertension Hyperlipidemia BPH (benign prostatic hyperplasia) Hypoxia Condition: Improved Disposition: XFER TO [facility]UTE [facility]ARE [facility] Referrals: IMMANUEL MADDOX MD (PCP) Problem Qualifiers Additional Impressions: Pancreatitis due to biliary obstruction Chronicity: acute Acute pancreatitis complication: unspecified Qualified Codes: K85.10 - Biliary acute pancreatitis without necrosis or infection Hypertension Hypertension type: essential hypertension Qualified Codes: I10 - Essential (primary) hypertension Hyperlipidemia Hyperlipidemia type: unspecified Qualified Codes: E78.5 - Hyperlipidemia, unspecified BPH (benign prostatic hyperplasia) Lower urinary tract symptom presence: unspecified whether lower urinary tract symptoms present Qualified Codes: N40.0 - Benign prostatic hyperplasia without lower urinary tract symptoms GARY HOOVER DO Jun 23, 2018 20:12
[2018-06-23] MEDS ORDERED: NS(*) 0.9% 1000 ML BAG 1,000 ML IV ONE (20:17)
[2018-06-23] MEDS ORDERED: ONDANSETRON 4 MG/2 ML VIAL IVP ONE (20:20)
[2018-06-23] MEDS ORDERED: ACETAMINOPHEN 325 MG TAB PO ONE (20:20)
[2018-06-23 20:35] LABS: PLATELET COUNT, AUTOMATED 192 K/uL (150-450)
[2018-06-23 20:47] LABS: INR 0.99
--- NOTE | 2018-06-23 21:43 | EKG ---
FACILITY: [facility] - [place] PATIENT NAME: IMMANUEL GONZALEZ : [id number] MR: [id number] V: [id number] EXAM DATE: ORDERING PHYSICIAN: GARY HOOVER TECHNOLOGIST: ETIENNE Test Reason : DYSPNEA Blood Pressure : / mmHG Vent. Rate : 098 BPM Atrial Rate : 098 BPM P-R Int : 206 ms QRS Dur : 092 ms QT Int : 338 ms P-R-T Axes : 067 074 072 degrees QTc Int : 431 ms Sinus rhythm Nonspecific ST findings inferolaterally Small Q waves inferolaterally Confirmed by ELANA DREW ([id number]) on 06/24/2018 6:03:02 AM Referred By: Confirmed By:ELANA DREW
[2018-06-23] MEDS ORDERED: PIPERACILLIN/TAZO* 4.5 GM VIAL 4.5 GM in NS(*) 0.9% 100 ML ADDVANT BAG 100 ML IVPB ONE (21:55)
--- NOTE | 2018-06-23 21:59 | RADIOLOGY IMAGING REPORT ---
FACILITY: [facility] - [place] PATIENT NAME: Sheng Rebolledo : 1935 MR: [id number] V: [id number] EXAM DATE: ORDERING PHYSICIAN: GARY HOOVER TECHNOLOGIST: Location: [facility] Patient: Sheng Rebolledo : 1935 Visit/Account:[id number] Date of Sevice: 06/23/2018 GALLBLADDER HISTORY: RUQ pain pancreatitis ADDITIONAL HISTORY: None. COMPARISON: None. FINDINGS: Gallbladder: Gallbladder sludge. No wall thickening. No pericholecystic fluid collections Liver: 16 cm. No liver lesions. Common duct: Normal, 5.8 mm diameter. Pancreas: Mild dilatation of the pancreatic duct. No pancreatic mass lesion seen. Right kidney: Right kidney measures 10.2 x 4.2 x 4.9 cm in size. Multiple renal cysts. No hydroneph rosis. Upper abdominal aorta and IVC: Patent. Ascites: None visualized. IMPRESSION: 1. Gallbladder sludge. No evidence of acute cholecystitis. 2. Mild dilatation of the pancreatic duct. No acute pancreatic pathology identified, however. Report Dictated By: Porter Alejandro MD at 06/23/2018 9:49 PM Report E-Signed By: Porter Alejandro MD at 06/23/2018 9:55 PM WSN:[id number]
[2018-06-23] MEDS ORDERED: IOPAMIDOL 76% 75 ML INFUS BTL 75 ML ONE (23:50)
[2018-06-23] MEDS ORDERED: NS(*) 0.9% 50 ML BAG 50 ML ONE (23:50)
[2018-06-24 00:27] VITALS: BP 116/60
[2018-06-24] MEDS ORDERED: NS(*) 0.9% 1000 ML BAG 1,000 ML IV ONE (00:35)
--- NOTE | 2018-06-24 00:46 | RADIOLOGY IMAGING REPORT ---
FACILITY: [facility] PATIENT NAME: Sheng Rebolledo : 1935 MR: [id number] V: [id number] EXAM DATE: ORDERING PHYSICIAN: GARY HOOVER TECHNOLOGIST: Location: [facility] [place] Patient: Sheng Rebolledo : 1935 Visit/Account:[id number] Date of Sevice: 06/23/2018 CTA CHEST WW/O CNTR (PULM ANG) HISTORY: Elevated d-dimer. COMPARISON: Chest x-rays from 06/23/2018 and dating to 10/30/2006. No prior chest CT. TECHNIQUE: Pulmonary embolus protocol - Thin-slice axial imaging of the chest was performed during ma ximal pulmonary arterial opacification with intravenous nonionic iodinated contrast. 3D coronal slab MIPs and 2D reconstructions in the coronal and sagittal planes were performed to aid in pulmonary emb olus detection. [employer] Supervisor images have been stored on PACS. One of the following dose optimization techniques was utilized in the performance of this exam: Autom ated exposure control; adjustment of the mA and/or kV according to the patient's size; or use of an i terative reconstruction technique. Specific details can be referenced in the facility's radiology CT exam operational policy. CONTRAST: 75 mL of IV Isovue-[id number]. FINDINGS: Pulmonary arteries: There is adequate opacification of the pulmonary arteries to the segmental branch es. There are no filling defects in the visible pulmonary arteries. Pulmonary arteries are enlarged. Thoracic inlet: Normal. Aorta: No aneurysm or dissection. There is mild atherosclerosis of the aorta. Heart / Pericardium: The heart is normal. There is no ventricular septal deviation. There is no peric ardial effusion. There is mild to moderate coronary artery calcification. Mediastinum / Elvi: Normal mediastinum. No lymphadenopathy. Lungs / Pleura: No pleural effusion. There is mild atelectasis, greatest dependently in the lower lob es. No pneumothorax. The airways are normal. Upper abdomen: There is a partially visualized cyst of the posterior upper right renal cortex. Musculoskeletal/vertebra/body wall: There are Schmorl nodes, and there is moderate degenerative quinn e of the spine. There is mild wedging of T11, unchanged. IMPRESSION: 1. No pulmonary embolism. 2. Mild to moderate coronary artery calcification. 3. Pulmonary arteries are enlarged. This is nonspecific but can be seen with pulmonary artery hyperte nsion. Report Dictated By: Shana Cervantes at 06/24/2018 12:33 AM Report E-Signed By: Shana Cervantes at 06/24/2018 12:42 AM WSN:[id number]
== END 2018-06-24 00:53 | disposition short-term general hospital (02) ==
LOC: ER 20:16
DX: K85.10 Biliary acute pancreatitis without necrosis or infection (principal); I10 Essential (primary) hypertension; E78.5 Hyperlipidemia, unspecified; N40.0 Benign prostatic hyperplasia without lower urinary tract symptoms; R09.02 Hypoxemia
CPT/HCPCS: 71275; 76705; 81001; 83605; 83690; 83880; 85025; 85379; 85610; 85730; 86140; 87040; 93005; 96361; 96365; 96375; 99285; J2405; J2543; J7030; J7050; Q9967; 82040; 82247; 82310; 82374; 82435; 82565; 82947; 84075; 84132; 84155; 84295; 84450; 84460; 84520

== ENCOUNTER → 2018-06-24 | Outpatient (CLI) | payer MEDICARE | LOC: AMB 00:38 | PROVIDERS: ATTEND Nurse Practitioner | DX: K86.89 Other specified diseases of pancreas (principal); N28.1 Cyst of kidney, acquired | CPT/HCPCS: A0425; A0426; A0888 ==

== ENCOUNTER → 2018-09-14 | Outpatient (CLI) | payer MEDICARE | LOC: AUD 09:00 | PROVIDERS: ATTEND Family Medicine | DX: H90.3 Sensorineural hearing loss, bilateral (principal) | CPT/HCPCS: 92552 ==